=== PATIENT | female | born 1950 | race Caucasian/White ===

== ENCOUNTER → 2021-09-22 | Outpatient (CLI) | payer MEDICARE, BC | LOC: MC.RAD 15:45 | DX: Z12.31 Encounter for screening mammogram for malignant neoplasm of breast (principal); N64.89 Other specified disorders of breast ==

== ENCOUNTER → 2021-10-17 | Outpatient (CLI) | payer MEDICARE, BC | LOC: MC.RAD 08:00 | DX: N64.89 Other specified disorders of breast (principal) ==

== ENCOUNTER 2021-12-06 14:50 | Outpatient (CLI) | payer MEDICARE, BC ==
[~2021-12-06] VITALS: Ht 160 cm; Wt 63.0 kg
[2021-12-06 15:37] VITALS: BP 131/61; PULSE 62; TEMP 97.8
[2021-12-06] MEDS ORDERED: EFFEXOR XR75 MG/CAP PO (15:40)
[2021-12-06] MEDS ORDERED: NEURONTIN100 MG/CAP PO (15:40)
[2021-12-06] MEDS ORDERED: SYNTHROID0.075 MG/T PO (15:41)
[2021-12-06] MEDS ORDERED: ASPIRIN E.C. 8181 MG PO (15:41)
[2021-12-06] MEDS ORDERED: LIPITOR 40MG TA40 MG PO ×2 (15:44→15:49)
[2021-12-06] MEDS ORDERED: VITAMIN D31000 IU PO (15:45)
[2021-12-06] MEDS ORDERED: PROBIOTIC BLEN1 EACH PO (15:49)
[2021-12-06] MEDS ORDERED: MELATONIN5 M1 SL (15:50)
== END 2021-12-06 15:50 | disposition home or self-care (01) ==
LOC: EUO 14:50
DX: M81.0 Age-related osteoporosis without current pathological fracture (principal)
CPT/HCPCS: J3489

== ENCOUNTER 2022-12-07 14:51 | Outpatient (CLI) | payer MEDICARE, BC ==
[~2022-12-07] VITALS: Ht 160 cm; Wt 63.0 kg
[~2022-12-07 14:51] MED LIST: ASPIRIN E.C. 8181 MG PO; EFFEXOR XR75 MG/CAP PO; LIPITOR 40MG TA40 MG PO; MELATONIN5 M1 SL; NEURONTIN400 MG/CAP PO; PROBIOTIC BLEN1 EACH PO; SYNTHROID0.075 MG/T PO; VITAMIN D31000 IU PO
[2022-12-07 15:27] VITALS: BP 115/53; PULSE 63; TEMP 97.9
== END 2022-12-07 16:33 | disposition home or self-care (01) ==
LOC: EUO 14:51
DX: M81.0 Age-related osteoporosis without current pathological fracture (principal)
CPT/HCPCS: J3489

== ENCOUNTER 2023-04-04 10:16 | Outpatient (RCR) | payer MEDICARE, BC | END 2023-04-11 | disposition home or self-care (01) | LOC: WSST | DX: R47.89 Other speech disturbances (principal) ==

== ENCOUNTER 2023-08-13 10:27 | Outpatient (RCR) | payer MEDICARE, BC | END 2023-09-11 | disposition home or self-care (01) | LOC: WSST | DX: F80.0 Phonological disorder (principal); R41.3 Other amnesia ==

== ENCOUNTER → 2023-11-28 | Outpatient (CLI) | payer MEDICARE, BC | LOC: MC.RAD 12:56 | DX: Z12.31 Encounter for screening mammogram for malignant neoplasm of breast (principal) ==